=== PATIENT | female | born 1970 | race Caucasian/White ===

== ENCOUNTER → 2019-06-13 | Outpatient (CLI) | payer BC ==
[~2019-06-13] MED LIST: Z.0.VALTREX500 MG; [UNRECOGNIZED DRUG - OTHER]
--- NOTE | 2019-06-13 11:46 | Diagnostic Imaging Report ---
EXAMINATION: CHEST 2 VIEWS INDICATION: Bronchitis COMPARISON: None FINDINGS: LINES/TUBES:None LUNGS:The lungs are well-inflated. No focal consolidation or pulmonary edema. There is a 14 x 9 mm nodular opacity at the posterior right lower lobe concerning for pulmonary nodule. PLEURA:No pleural effusion or pneumothorax. MEDIASTINUM:The cardiomediastinal silhouette appears normal in size and shape. BONES/SOFT TISSUES:No acute osseous injury. ABDOMEN:No free air under the diaphragm. IMPRESSION: 14 x 9 mm nodular opacity at the posterior right lower lobe is concerning for pulmonary nodule. Recommend dedicated chest CT for further evaluation. No focal pneumonia or pulmonary edema. Signed by: Michael Givens MD on 06/13/2019 11:43 AM
== END ==
LOC: RAD 11:05
PROVIDERS: ATTEND Internal Medicine
DX: J40 Bronchitis, not specified as acute or chronic (principal)
CPT/HCPCS: 71046

== ENCOUNTER → 2019-07-08 | Outpatient (CLI) | payer BC ==
[~2019-07-08] MED LIST changes: +IOPAMIDOL 370 MG/ML 200 ML INFUS..BTL INJ ONE; +SODIUM CHLORIDE 0.9% 50ML 50 ML ONE
--- NOTE | 2019-07-08 09:57 | Diagnostic Imaging Report ---
CT of the chest, with contrast, 07/08/2019 History: Pulmonary nodule. Comparison: Chest radiograph dated 06/13/2019. Technique: Multidetector CT scanning of the chest was performed from the level of the thoracic inlet to the upper abdomen with IV contrast. Dose reduction: The examination was performed according to departmental dose-optimization program which includes automated exposure control, adjustment of the mA and/or kV according to patient size and/or use of iterative reconstruction technique. Findings: The visualized portions of the thyroid gland are within normal limits. There is no axillary, mediastinal, or hilar lymphadenopathy. Calcified right hilar lymph nodes are likely the sequela of prior granulomatous infection. The heart is within normal limits of size. There is no pericardial effusion. The thoracic aorta is of normal course and caliber. The trachea and central airways are clear. No pulmonary consolidation is identified. In the right lower lobe there is a 13 mm x 10 mm calcified granuloma which corresponds to the chest x-ray finding. No suspicious pulmonary nodules are identified. A 3 mm pulmonary nodule is identified in the right middle lobe on axial image 67 of series 5. A 4 mm nodules identified in the right lower lobe axial image 104 of series 5. The pleural spaces are clear. There is no pleural effusion or pneumothorax. Limited evaluation of the upper abdomen shows no focal hepatic lesions in the visualized portions of the liver. The spleen has scattered calcified granulomas. There are no acute osseous antibodies. IMPRESSION: No suspicious pulmonary nodules. The nodular opacity identified on recent chest x-ray corresponds to a calcified granuloma. Signed by: Nathan Unger MD on 07/08/2019 9:54 AM
== END ==
LOC: CT 08:19
PROVIDERS: ATTEND Internal Medicine
DX: R91.8 Other nonspecific abnormal finding of lung field (principal)
CPT/HCPCS: 71260; Q9967

== ENCOUNTER 2020-12-19 13:50 | Emergency (ER) | payer BC ==
[~2020-12-19] VITALS: Ht 162.6 cm; Wt 68.0 kg
[~2020-12-19 13:50] MED LIST changes: -IOPAMIDOL 370 MG/ML 200 ML INFUS..BTL INJ ONE; -SODIUM CHLORIDE 0.9% 50ML 50 ML ONE
[2020-12-19] MEDS ORDERED: KETOROLAC TROMETHAMINE 30 MG/ML VIAL IM STA (13:59)
[2020-12-19] MEDS ORDERED: HYDROCODON-ACE1 EA11 PO (15:24)
[2020-12-19 15:31] VITALS: BP 120/62
== END 2020-12-19 15:32 | disposition home or self-care (01) ==
LOC: ER 13:59
DX: M79.671 Pain in right foot (principal); S92.351A Displaced fracture of fifth metatarsal bone, right foot, initial encounter for closed fracture; X50.1XXA Overexertion from prolonged static or awkward postures, initial encounter; Y93.01 Activity, walking, marching and hiking; Y92.008 Other place in unspecified non-institutional (private) residence as the place of occurrence of the external cause
CPT/HCPCS: 29515; 73630; 99283; J1885

== ENCOUNTER 2021-02-28 09:35 | Emergency (ER) | payer BC ==
[~2021-02-28] VITALS: Ht 162.6 cm; Wt 68.0 kg
[~2021-02-28 09:35] MED LIST changes: +HYDROCODON-ACE1 EA11 PO
[2021-02-28 10:14] LABS: BASOPHILS % 0.5 % (0.0-1.0); EOSINOPHILS # (AUTO) 0.1 (0.0-0.4); EOSINOPHILS % 1.6 % (0.0-6.0); HEMATOCRIT 43.5 % (34.2-44.1); HEMOGLOBIN 14.2 g/dL (12.0-16.0); LYMPHOCYTES # (AUTO) 1.7 (1.0-3.2); LYMPHOCYTES % 29.8 % (18.0-39.1); MEAN CORPUSCULAR HEMOGLOBIN 27.8 pg (28-32); MEAN CORPUSCULAR HGB CONC 32.6 g/dL (31-35); MEAN CORPUSCULAR VOLUME 85.3 fL (81-99); MONOCYTES # (AUTO) 0.3 (0.2-0.8); MONOCYTES % 4.4 % (4.4-11.3); NEUTROPHILS # (AUTO) 3.5 (2.1-6.9); NEUTROPHILS % 62.8 % (38.7-80.0); PLATELET COUNT 169 x10e3/uL (140-360); RED CELL DISTRIBUTION WIDTH 12.9 % (11.7-14.4)
[2021-02-28 10:29] LABS: ALBUMIN 3.9 g/dL (3.5-5.0); ALBUMIN/GLOBULIN RATIO 1.2 (0.8-2.0); ANION GAP 13.2 mmol/L (8-16); CALCIUM 9.2 mg/dL (8.4-10.2); CREATININE, SERUM 0.78 mg/dL (0.57-1.11); POTASSIUM 4.2 mmol/L (3.5-5.1)
[2021-02-28 10:37] LABS: CREATINE KINASE MB 0.8 ng/mL (0-5.0)
[2021-02-28 12:01] VITALS: BP 131/88
== END 2021-02-28 12:05 | disposition home or self-care (01) ==
LOC: ER 09:55
DX: R07.89 Other chest pain (principal); F17.200 Nicotine dependence, unspecified, uncomplicated
CPT/HCPCS: 36415; 71045; 80053; 82550; 82553; 84484; 85025; 93005; 99284

== ENCOUNTER 2021-04-06 15:26 | Emergency (ER) | payer BC ==
[~2021-04-06] VITALS: Ht 160 cm; Wt 79.4 kg
[2021-04-06] MEDS ORDERED: SODIUM CHLORIDE 0.9% 1000ML 1,000 ML IV SCH (16:00)
[2021-04-06] MEDS ORDERED: SODIUM CHLORIDE 0.9% 1000ML 1,000 ML ONE (16:18)
[2021-04-06 18:00] VITALS: BP 113/72
== END 2021-04-06 18:07 | disposition home or self-care (01) ==
LOC: FSED 15:31
DX: R55 Syncope and collapse (principal); R11.2 Nausea with vomiting, unspecified; F17.210 Nicotine dependence, cigarettes, uncomplicated
CPT/HCPCS: 70450; 71046; 80053; 81003; 82553; 84484; 85025; 93005; 99283; J7030